=== PATIENT | male | born 1960 | race Caucasian/White ===

== ENCOUNTER 2016-09-16 20:35 | Emergency (ER) | payer BC ==
[2016-09-16] MEDS ORDERED: diPHENhydraMINE IV* 50 MG/ML 1 ml VIAL (BENADRYL) IV ONE (21:49)
[2016-09-16] MEDS ORDERED: Famotidine IV* 10 MG/ML 2 ML (20 mg) IV SLOW PU ONE (21:50)
[2016-09-16] MEDS ORDERED: methylPREDNISolone 125 MG* 2 ML VIAL IV ONE (21:50)
[2016-09-16] MEDS ORDERED: NS 0.9% 1000 ML* 1,000 ML IV ONE (21:52)
[2016-09-16 23:56] VITALS: BP 169/96
--- NOTE | 2016-09-17 00:03 | ED ---
I, Oh,Soohyun, scribed for Holland Kwong MD on 09/16/16 at 2150 . Allergic Reaction/Systemic - HPI Summary HPI Summary: This 56 y/o male presents to ED for bilat hand swelling after being stung by bee on both hands. He was mowing between two trees when he was stung between LUE digit #2 and #3 and palm of RUE hand. Pt isn't sure what kind of bees "it was real skinny bees". Negative SOB. Positive FB sensation on right side of his throat. PMHx includes HTN. Positive Hx of similar reaction to bee sting. He didn 't take any Benadryl. Pt is occasional drinker and nonsmoker. - History of Current Complaint Chief Complaint: EDAllergicReaction Time Seen by Provider: 09/16/16 21:39 Hx Obtained From: Patient, Medical Records Onset/Duration: Sudden Onset Timing: Constant, Lasting Days Pain Intensity: 4 Pain Scale Used: 0-10 Numeric Location: Discrete @ - bilat hands Character: Swelling Aggravating Factor(s): Nothing Alleviating Factor(s): Nothing Associated Signs And Symptoms: Negative: Difficulty Breathing, Nausea, Throat Tightening - Allergies/Home Medications Allergies/Adverse Reactions: Allergies Allergy/AdvReac Type Severity Reaction Status Date / Time No Known Allergies Allergy Verified 05/06/15 14:55 PMH/Surg Hx/FS Hx/Imm Hx Cardiovascular History: Reports: Hx Hypertension Sensory History: Reports: Hx Contacts or Glasses - READING Opthamlomology History: Reports: Hx Contacts or Glasses - READING Neurological History: Reports: Hx Migraine, Other Neuro Impairments/Disorders - VERTIGO - Surgical History Surgery Procedure, Year, and Place: GANGLION CYST REMOVED @ [facility] [place] IN THE . Infectious Disease History: No Infectious Disease History: Denies: Traveled Outside the [place] in Last 30 Days - Family History Known Family History: Positive: Respiratory Disease - COPD both parents - Social History Alcohol Use: Daily Alcohol Amount: 4-5 BEERS PER DAY Substance Use Type: Reports: None Smoking Status (MU): Never Smoked Tobacco Review of Systems Negative: Fever Positive: Other - FB sensation at right side of his throat Negative: Chest Pain Negative: Shortness Of Breath Positive: Other - Swelling of bilat hands All Other Systems Reviewed And Are Negative: Yes Physical Exam - Summary Physical Exam Summary: The patient is well-nourished in no acute distress and in no acute pain. The skin is warm and dry and skin color reflects adequate perfusion. Bilat hand. localized allergic reaction. HEENT: The head is normocephalic and atraumatic. The pupils are equal and reactive. The conjunctivae are clear and without drainage. Nares are patent and without drainage. Mouth reveals moist mucous membranes and the throat is WITHOUT erythema and exudate. The external ears are intact. The ear canals are patent and without drainage. The tympanic membranes are intact. Neck is supple with full range of motion and non-tender. There are no carotid bruits. There is no neck vein distension. Negative lymphadenopathy. Respiratory: Chest is non-tender. Lungs are clear to auscultation and breath sounds are symmetrical and equal. Negative wheezing. Cardiovascular: Heart is regular rate and rhythm. There is no murmur or rub auscultated. There is no peripheral edema and pulses are symmetrical and equal. Abdomen: The abdomen is soft, obese, and non-tender. There are normal bowel sounds heard in all four quadrants and there is no organomegaly palpated. Musculoskeletal: There is no back pain noted. Extremities are non-tender with full range of motion. There is good capillary refill. There is no peripheral edema or calf tenderness elicited. Neurological: Patient is alert and oriented to person, place and time. The patient has symmetrical motor strength in all four extremities. Cranial nerves are grossly intact. Deep tendon reflexes are symmetrical and equal in all four extremities. Psychiatric: The patient has an appropriate affect and does not exhibit any anxiety or depression. Triage Information Reviewed: Yes Vital Signs On Initial Exam: Initial Vitals Temp Pulse Resp BP Pulse Ox 97.4 F 86 20 147/90 93 09/16/16 20:41 09/16/16 20:41 09/16/16 20:41 09/16/16 20:41 09/16/16 20:41 Vital Signs Reviewed: Yes - Edgar Coma Scale Coma Scale Total: 15 Diagnostics - Vital Signs Vital Signs Temp Pulse Resp BP Pulse Ox 09/16/16 21:36 98.3 F 82 18 137/89 93 09/16/16 21:32 83 93 09/16/16 20:41 97.4 F 86 20 147/90 93 - Laboratory Lab Statement: Any lab studies that have been ordered have been reviewed, and results considered in the medical decision making process. Allergic Reaction Course/Dx - Course Assessment/Plan: THis 56 y/o male presents to ED for localized allergic reaction with swelling of bilat hands after x1 bee sting each hand. Pt was push mowing the lawn between two trees when he was stung. Upon examination pt is noted with patent airway and negative erythema at pharynx. Pt was given Pepcid, methylprednisolone, and Benadryl in ED. No airway obstruction or respiratory distress during ED course. He is stable for discharge. - Diagnoses Differential Diagnosis/HQI/PQRI: Positive: Anaphylaxis, Local Allergic Reaction Provider Diagnoses: localized allergic reaction to bug bite Discharge - Discharge Plan Condition: Stable Disposition: HOME Prescriptions: Famotidine TAB 40 MG(NF) [Pepcid TAB 40 MG(NF)] 40 mg PO DAILY #10 tab diPHENhydraMINE PO* [Benadryl PO 50 MG CAP*] 50 mg PO Q6H PRN #30 cap PRN Reason: swelling predniSONE TAB* [Deltasone TAB*] 60 mg PO DAILY #15 tab Patient Education Materials: Famotidine (By mouth), Prednisone (By mouth), Diphenhydramine (By mouth), General Allergic Reaction (ED) Referrals: Edilberto Hatfield MD [Primary Care Provider] - 2 Days The documentation as recorded by the Tariq pickering Soohyun accurately reflects the service I personally performed and the decisions made by , Holland Kwong MD.
== END 2016-09-17 | disposition home or self-care (01) ==
LOC: ED 20:35
DX: T63.441A Toxic effect of venom of bees, accidental (unintentional), initial encounter (principal); M79.89 Other specified soft tissue disorders; Y92.9 Unspecified place or not applicable; I10 Essential (primary) hypertension
CPT/HCPCS: 96361; 96374; 96375; 99283; J1200; J2930

== ENCOUNTER 2017-12-18 14:05 | Emergency (ER) | payer BC, OTHER ==
[2017-12-18 14:26] VITALS: BP 156/96
--- NOTE | 2017-12-18 14:58 | UC ---
Bite Injury/Animal HPI - HPI Summary HPI Summary: 57-year-old male comes in with a chief complaint of swelling and a bee sting site from yesterday December 17, 2017. He was stung in the right arm right around the elbow. Overnight the area swollen quite a bit. No difficulty swallowing no shortness of breath the rash is contained on the inner aspect of the right arm. The last time he gets stung on a hand his hand swelled up and he went to the emergency department with a gave him a bunch of medications and he got better. He did take some Benadryl which is helping with the itching but the area still quite swollen. - History of Current Complaint Chief Complaint: UCAllergicReaction Stated Complaint: BEE STING Time Seen by Provider: 12/18/17 14:48 Pain Intensity: 4 - Allergies/Home Medications Allergies/Adverse Reactions: Allergies Allergy/AdvReac Type Severity Reaction Status Date / Time bee venom protein (honey bee) Allergy Intermediate Hives Verified 12/18/17 14:26 PMH/Surg Hx/FS Hx/Imm Hx Cardiovascular History: Hypertension - Surgical History Surgical History: Yes Surgery Procedure, Year, and Place: GANGLION CYST REMOVED @ [facility] [place] IN THE . - Family History Known Family History: Positive: Respiratory Disease - COPD both parents Negative: Diabetes Family History: NON CONTRIBUTORY - Social History Alcohol Use: Daily Alcohol Amount: 4-5 BEERS PER DAY Substance Use Type: None Smoking Status (MU): Never Smoked Tobacco - Immunization History Most Recent Influenza Vaccination: UNSURE Most Recent Tetanus Shot: UP TO DATE Most Recent Pneumonia Vaccination: NEVER Review of Systems All Other Systems Reviewed And Are Negative: Yes Constitutional: Positive: Negative Skin: Positive: Rash - SEE HPI Eyes: Positive: Negative ENT: Positive: Negative Respiratory: Positive: Negative Cardiovascular: Positive: Negative Gastrointestinal: Positive: Negative Motor: Positive: Negative Neurovascular: Positive: Negative Musculoskeletal: Positive: Negative Neurological: Positive: Negative Psychological: Positive: Negative Is Patient Immunocompromised?: No Physical Exam Triage Information Reviewed: Yes Appearance: Well-Appearing, No Pain Distress, Well-Nourished Vital Signs: Initial Vital Signs Temp 97.9 F 12/18/17 14:21 Pulse 88 12/18/17 14:21 Resp 18 12/18/17 14:21 BP 156/96 12/18/17 14:21 Pulse Ox 98 12/18/17 14:21 Vital Signs Reviewed: Yes Eye Exam: Normal Eyes: Positive: Conjunctiva Clear ENT: Negative: Muffled voice, Hoarse voice Neck exam: Normal Neck: Positive: Supple Respiratory: Positive: No respiratory distress Musculoskeletal Exam: Normal Musculoskeletal: Positive: Strength Intact, ROM Intact Neurological Exam: Normal Neurological: Positive: Alert, Muscle Tone Normal Psychological Exam: Normal Psychological: Positive: Age Appropriate Behavior Skin: Positive: Other - On the inner aspect of the right arm there is an area from the mid humerus down to the mid forearm and about one third of the circumference of the arm that's swollen erythematous that blanches. I did not see any stinger still intact. Hand is at elbow and shoulder have all full range of motion no sensation deficit normal capillary refill. Bite Injury Course/Dx - Differential Dx/Diagnosis Provider Diagnoses: LOCALIZED ALLERGIC REACTION TO BEE STING RIGHT ARM Discharge - Sign-Out/Discharge Documenting (check all that apply): Patient Departure All imaging exams completed and their final reports reviewed: No Studies - Discharge Plan Condition: Stable Disposition: HOME Prescriptions: predniSONE TAB* [Deltasone 20 MG TAB*] 40 mg PO DAILY #10 tab Patient Education Materials: Insect Bite or Sting (ED) Referrals: Edilberto Hatfield MD [Primary Care Provider] - Additional Instructions: TAKE BENADRYL 50MG EVERY 6 HOURS NEEDED. TAKE PEPCID 20MG TWICE A DAY NEEDED. TAKE THE PREDNISONE DIRECTED NEEDED. FOLLOW UP WITH YOUR DOCTOR IF NOT COMPLETELY IMPROVED. GET RECHECKED FOR ANY WORSENING OF YOUR CONDITION; SPREAD OF THE RASH, SHORTNESS OF BREATH, DIFFICULTY SWALLOWING OR BREATHING, FEVER, YOU FEEL ILL OR QUESTIONS OR CONCERNS. - Billing Disposition and Condition Condition: STABLE Disposition: Home
== END 2017-12-18 15:05 | disposition home or self-care (01) ==
LOC: UCEAST 14:05
DX: T63.441A Toxic effect of venom of bees, accidental (unintentional), initial encounter (principal); Y92.9 Unspecified place or not applicable; I10 Essential (primary) hypertension
CPT/HCPCS: 99212; G0463

== ENCOUNTER 2020-11-18 14:42 | Inpatient (IN) ==
[2020-11-18] MEDS ORDERED: Ondansetron 4 mg VIAL 2 MG/ML 2 ml VIAL IV ONE (15:02)
[2020-11-18] MEDS ORDERED: NS 0.9% 1000 ml BAG 1,000 ML IV ONE (15:03)
[2020-11-18 15:36] LABS: ABS Eosinophils 0.1 10^3/ul (0-0.6); ABS Lymphocytes 3.4 10^3/ul (1.0-4.8); ABS Monocytes 0.9 10^3/ul (0-0.8); ABS Neutrophils 7.3 10^3/ul (1.5-7.7); Eosinophil % 0.7 %; Hematocrit 48 % (42-52); Hemoglobin 16.4 g/dL (14.0-18.0); Lymphocyte % 29.2 %; Mean Corpuscular HGB Conc 34 g/dL (31-36); Mean Corpuscular Hemoglobin 32 pg (27-31); Mean Corpuscular Volume 92 fL (80-94); Mean Platelet Volume 6.8 fL (7.4-10.4); Platelet Count 281 10^3/uL (150-450); Red Blood Count 5.21 10^6 /uL (4.18-5.48); Red Cell Distribution Width 13 % (10-15); White Blood Count 11.7 10^3/uL (3.5-10.8)
[2020-11-18 15:57] LABS: Albumin 4.2 g/dL (3.2-5.2); Albumin/Globulin Ratio 1.4 (1-3); Calcium 9.3 mg/dL (8.6-10.3); Potassium 4.1 mmol/L (3.5-5.0); Total Bilirubin 0.3 mg/dL (0.2-1.0); Total Protein 7.2 g/dL (6.4-8.9)
[2020-11-18 15:59] LABS: Troponin I 0.02 ng/mL (<0.03)
[2020-11-18 16:37] LABS: TSH Ultra Thyroid Stim Horm 3.1 mcIU/mL (0.34-5.60)
[2020-11-18] MEDS ORDERED: Iohexol 350 (CONTRAST) 500 ML MDV IV ONE (17:19)
[2020-11-18 19:12] LABS: Urine Appearance Clear; Urine Bilirubin Negative (Negative); Urine Blood Negative (Negative); Urine Color Yellow; Urine Glucose Negative (Negative); Urine Ketones Negative (Negative); Urine Nitrite Negative (Negative); Urine Protein Negative (Negative); Urine Specific Gravity 1.038 (1.002-1.030); Urine Urobilinogen Negative (Negative)
[2020-11-18] MEDS ORDERED: Ondansetron 4 mg VIAL 2 MG/ML 2 ml VIAL IV PRN (20:50)
[2020-11-18] MEDS: Aspirin EC 81 mg TAB.EC (enteric coated) PO SCH (22:50)
[2020-11-18] MEDS: Enoxaparin 40 MG/0.4 ML SYR SUBCUT SCH (22:50)
[2020-11-18 23:23] LABS: Rapid COVID-19 Molecular Undetected (Undetected)
[2020-11-19 06:06] LABS: HDL Cholesterol 30.3 mg/dL
[2020-11-19] MEDS: Aspirin EC 81 mg TAB.EC (enteric coated) PO SCH (09:17)
[2020-11-19 10:18] LABS: TSH Ultra Thyroid Stim Horm 3.86 mcIU/mL (0.34-5.60)
[2020-11-19] MEDS: Enoxaparin 40 MG/0.4 ML SYR SUBCUT SCH (20:06)
[2020-11-20 06:21] LABS: Hematocrit 45 % (42-52); Hemoglobin 15.5 g/dL (14.0-18.0); Mean Corpuscular HGB Conc 35 g/dL (31-36); Mean Corpuscular Hemoglobin 32 pg (27-31); Mean Corpuscular Volume 91 fL (80-94); Mean Platelet Volume 6.7 fL (7.4-10.4); Platelet Count 218 10^3/uL (150-450); Red Cell Distribution Width 13 % (10-15); White Blood Count 7.8 10^3/uL (3.5-10.8)
[2020-11-20 06:44] LABS: Calcium 9.1 mg/dL (8.6-10.3); Potassium 4.1 mmol/L (3.5-5.0)
[2020-11-20] MEDS: Aspirin EC 81 mg TAB.EC (enteric coated) PO SCH (08:55)
[2020-11-20 15:35] VITALS: BP 114/53
== END 2020-11-20 18:22 | disposition home or self-care (01) | DRG 111 ==
LOC: ED 14:42 → MEDTELE 14:42 → SUATTDRO 11-19 00:01 → MEDTELE 11-19 00:16
PROVIDERS: ADMIT Internal Medicine; ATTEND Internal Medicine